=== PATIENT | female | born 1980 | race Hispanic/Latino ===

== ENCOUNTER 2017-06-29 11:20 | Emergency (ER) | payer SELFPAY ==
[2017-06-29] MEDS ORDERED: MOTRIN PO ONE (15:06)
--- NOTE | 2017-06-29 16:18 | Emergency Department Report ---
ED Lower Extremity HPI - General Chief Complaint: Extremity Problem,Nontraumatic Stated Complaint: RT FOOT PAIN Time Seen by Provider: 06/29/17 14:00 Source: patient Mode of arrival: Ambulatory Limitations: No Limitations - History of Present Illness Initial Comments: 36-year-old female past medical history obesity presents with complaint of one month of right heel pain. Patient states that standing hurts and that is persistent pain. Denies any fevers chills changes in skin coloration. States that she works standing on her feet for prolonged periods of time. Patient is ambulatory without assistance. Has not taken any medicines for the pain at home. Has not followed up with primary care or podiatry. MD Complaint: foot injury Onset/Timin -: month(s) Injury: Foot: Right (right heel radiating to midfoot) Place: home, work Severity: moderate Severity scale (0 -10): 5 Worsens With: weight bearing Context: walking Associated Symptoms: ambulatory - Related Data Previous Rx's Medication Instructions Recorded Last Taken Type Naproxen [Naprosyn TAB] 500 mg PO BID PRN #25 tablet 06/29/17 Unknown Rx Allergies Allergy/AdvReac Type Severity Reaction Status Date / Time Penicillins Allergy Unknown Verified 06/29/17 12:04 codeine AdvReac Vomiting Verified 06/29/17 12:04 ED Review of Systems ROS: Stated complaint: RT FOOT PAIN Other details as noted in HPI Constitutional: denies: chills, fever Eyes: denies: eye pain, eye discharge, vision change ENT: denies: ear pain, throat pain Respiratory: denies: cough, shortness of breath, wheezing Cardiovascular: denies: chest pain, palpitations Endocrine: no symptoms reported Gastrointestinal: denies: abdominal pain, nausea, diarrhea Genitourinary: denies: urgency, dysuria, discharge Musculoskeletal: as per HPI. denies: back pain, joint swelling, arthralgia Skin: denies: rash, lesions Neurological: denies: headache, weakness, paresthesias Psychiatric: denies: anxiety, depression Hematological/Lymphatic: denies: easy bleeding, easy bruising ED Past Medical Hx - Past Medical History Hx Hypertension: Yes - Surgical History Additional Surgical History: left ankle/knee - Social History Smoking Status: Never Smoker Substance Use Type: None - Medications Home Medications: Home Medications Medication Instructions Recorded Confirmed Last Taken Type Naproxen [Naprosyn TAB] 500 mg PO BID PRN #25 tablet 06/29/17 Unknown Rx ED Physical Exam - General Limitations: No Limitations General appearance: alert, in no apparent distress - Head Head exam: Present: atraumatic, normocephalic - Eye Eye exam: Present: normal appearance, PERRL, EOMI - ENT ENT exam: Present: mucous membranes moist - Neck Neck exam: Present: normal inspection, full ROM - Respiratory Respiratory exam: Present: normal lung sounds bilaterally. Absent: respiratory distress - Cardiovascular Cardiovascular Exam: Present: regular rate, normal rhythm. Absent: systolic murmur, diastolic murmur, rubs, gallop - GI/Abdominal GI/Abdominal exam: Present: soft, normal bowel sounds - Extremities Exam Extremities exam: Present: normal inspection - Expanded Lower Extremity Exam Right Hip exam: Present: normal inspection, full ROM Upper Leg exam: Present: normal inspection, full ROM Knee exam: Present: normal inspection, full ROM Lower Leg exam: Present: normal inspection, full ROM Ankle exam: Present: normal inspection, full ROM Foot/Toe exam: Present: normal inspection, full ROM, tenderness (tenderness deep palpation to heel/calcaneous) Neuro vascular tendon exam: Present: no vascular compromise (distal DP and PT pulses intact) Gait: Positive: observed and normal 1 - pain w/ palpation here - Back Exam Back exam: Present: normal inspection - Neurological Exam Neurological exam: Present: alert, oriented X3, CN II-XII intact, normal gait - Psychiatric Psychiatric exam: Present: normal affect, normal mood - Skin Skin exam: Present: warm, dry, intact, normal color. Absent: rash ED Course Vital Signs 06/29/17 06/29/17 06/29/17 12:04 16:39 16:40 Temperature 98.1 F Pulse Rate 77 78 Respiratory 16 16 Rate Blood Pressure 179/107 Blood Pressure 163/94 [Right] O2 Sat by Pulse 97 Oximetry ED Lower Extremity MDM - Medical Decision Making A/P: Plantar fasciitis right heel 1-RICE therapy 2-NSAIDs when necessary 3-podiatry follow-up, primary care follow-up, recommended the patient wear comfortable supportive foot soles and foot were, Melchor wrap right foot. Critical care attestation.: If time is entered above; I have spent that time in minutes in the direct care of this critically ill patient, excluding procedure time. ED Disposition Clinical Impression: Pain of right heel Disposition: DC-01 TO HOME OR SELFCARE Is pt being admited?: No Does the pt Need Aspirin: No Condition: Stable Instructions: Plantar Fasciitis (ED) Prescriptions: Naproxen [Naprosyn TAB] 500 mg PO BID PRN #25 tablet PRN Reason: Pain Referrals: MEDINA DUTTA DPM [Staff Physician] - 3-5 Days [facility] [Provider Group] - 3-5 Days [facility] [Outside] - 3-5 Days Forms: Work/School Release Form(ED) Time of Disposition: 16:24
[2017-06-29 16:40] VITALS: BP 163/94
--- NOTE | 2017-06-29 17:47 | XRay Report ---
FINAL REPORT PROCEDURE: XR FOOT 3+V RT TECHNIQUE: Right foot, three views HISTORY: right heel pain, spurs COMPARISON: No prior studies are available for comparison. FINDINGS: No acute fracture or dislocation is seen. Arthritic changes are noted of the midfoot. Small plantar calcaneal enthesophyte is seen, measuring 3 millimeters. Enthesophyte is seen at the Achilles insertion on the posterior calcaneus, measuring 6 millimeters. IMPRESSION: Calcaneal enthesophytes as described above.
== END 2017-06-29 16:41 | disposition home or self-care (01) ==
LOC: ED 11:20
DX: M79.604 Pain in right leg (principal); I10 Essential (primary) hypertension

== ENCOUNTER 2017-07-07 02:27 | Emergency (ER) | payer OTHER ==
[2017-07-07] MEDS ORDERED: TORADOL IV ONE (02:48)
[2017-07-07] MEDS ORDERED: ZOFRAN IV ONE ×2 (02:48→03:30)
[2017-07-07] MEDS ORDERED: MORPHINE ONE (03:29)
[2017-07-07] MEDS ORDERED: MORPHINE IV ONE ×2 (03:30→07:21)
[2017-07-07 04:04] LABS: Basophils % (Auto) 0.6 % (0.0-1.8); Eosinophils % (Auto) 1.5 % (0.0-4.3); Hematocrit 34.7 % (30.3-42.9); Hemoglobin 10.7 gm/dl (10.1-14.3); Mean Corpuscular HGB Conc 31 % (30-34); Red Blood Count 5.16 M/mm3 (3.65-5.03); Red Cell Distribution Width 19.1 % (13.2-15.2); White Blood Count 12.6 K/mm3 (4.5-11.0)
[2017-07-07 04:24] LABS: Mean Corpuscular Hemoglobin 21 pg (28-32); Mean Corpuscular Volume 67 fl (79-97); Platelet Count 315 K/mm3 (140-440)
[2017-07-07 04:27] LABS: Alanine Aminotransferase 9 units/L (7-56); Albumin 3.6 g/dL (3.9-5); Albumin/Globulin Ratio 0.9 %; Alkaline Phosphatase 77 units/L (35-129); Anion Gap 21 mmol/L; Blood Urea Nitrogen 20 mg/dL (7-17); Calcium 8.9 mg/dL (8.4-10.2); Carbon Dioxide 19 mmol/L (22-30); Glucose 96 mg/dL (65-100); Sodium 135 mmol/L (137-145); Total Protein 7.7 g/dL (6.3-8.2)
[2017-07-07] MEDS ORDERED: NACL 0.9% 1000 ML 1,000 ML ONE (04:45)
[2017-07-07] MEDS ORDERED: NACL 0.9% 1000 ML 1,000 ML IV ONE (05:10)
[2017-07-07 05:19] LABS: Mucus,Urine 3+ /HPF
[2017-07-07 06:20] LABS: Bilirubin,Urine NEG (Negative); Blood,Urine NEG (Negative); Ketones,Urine NEG (Negative); Leukocyte Esterase,Urine TR (Negative); Nitrite,Urine NEG (Negative); Protein,Urine <15 mg/dL mg/dL (Negative); Urobilinogen,Urine < 2.0 mg/dL (<2.0)
--- NOTE | 2017-07-07 06:57 | Cat Scan Report ---
FINAL REPORT PROCEDURE: CT ABDOMEN PELVIS WO CON TECHNIQUE: Computerized axial tomography of the abdomen and pelvis was performed without intravenous contrast. This study is performed without intravascular contrast material and its sensitivity for abdominal and pelvic pathology, including neoplasms, inflammation, abscess, free fluid, thrombosis, arterial dissection and infarction, is reduced compared with a contrast enhanced study. HISTORY: suspected kidney stone COMPARISON: No prior studies are available for comparison. FINDINGS: Visualized lower thorax: No significant abnormality. Liver: Normal size and attenuation. Spleen: Normal size and attenuation. Gallbladder and biliary system: Normal. Pancreas: Normal. Adrenals: There is a 1 centimeter fatty mass in the left adrenal gland suggesting adenoma.. Kidneys: There are no kidney stones or ureteral stones. There is no hydronephrosis.. GI tract: There is no bowel obstruction, colitis or enteritis. The appendix is normal.. Lymph nodes and mesentery: Normal. Vasculature: Normal. Bladder: Normal. Reproductive organs: Uterus and ovaries are unremarkable.. Peritoneum: There is no ascites, free air, abscess or adenopathy.. Musculoskeletal structures: No significant abnormality. Other: None. IMPRESSION: There is a 1 centimeter fatty mass in the left adrenal gland suggesting adenoma.. There are no kidney stones or ureteral stones. There is no hydronephrosis.. There is no bowel obstruction, colitis or enteritis. The appendix is normal.. Uterus and ovaries are unremarkable.. There is no ascites, free air, abscess or adenopathy.. .
--- NOTE | 2017-07-07 07:26 | Emergency Department Report ---
ED Abdominal Pain HPI - General Chief Complaint: Abdominal Pain Stated Complaint: POSS KIDNEY STONE/PAIN Time Seen by Provider: 07/07/17 07:14 Source: patient Mode of arrival: Ambulatory Limitations: No Limitations - History of Present Illness Initial Comments: 37-year-old female coming in his right flank pain that started yesterday described the pain as sharp in nature increase his movement relieved his remaining is still. Denied any fever no dysuria or hematuria. No nausea or vomiting or diarrhea. MD Complaint: flank pain -: days(s) Location: R flank Radiation: back Migration to: R flank Severity scale (0 -10): 9 Quality: dull - Related Data Previous Rx's Medication Instructions Recorded Last Taken Type Naproxen [Naprosyn TAB] 500 mg PO BID PRN #25 tablet 06/29/17 Unknown Rx Ketorolac [Toradol] 10 mg PO Q6H PRN #20 tablet 07/07/17 Unknown Rx Metaxalone [Skelaxin] 800 mg PO TID #30 tablet 07/07/17 Unknown Rx Allergies Allergy/AdvReac Type Severity Reaction Status Date / Time Penicillins Allergy Unknown Verified 06/29/17 12:04 codeine AdvReac Vomiting Verified 06/29/17 12:04 ED Review of Systems ROS: Stated complaint: POSS KIDNEY STONE/PAIN Other details as noted in HPI Comment: All other systems reviewed and negative Constitutional: denies: chills, fever Respiratory: denies: cough, shortness of breath Cardiovascular: denies: chest pain, palpitations Gastrointestinal: abdominal pain. denies: nausea, vomiting Neurological: denies: headache, weakness ED Past Medical Hx - Past Medical History Previous Medical History?: Yes Hx Hypertension: Yes Hx Kidney Stones: Yes - Surgical History Past Surgical History?: Yes Additional Surgical History: left ankle/knee - Social History Smoking Status: Never Smoker Substance Use Type: None - Medications Home Medications: Home Medications Medication Instructions Recorded Confirmed Last Taken Type Naproxen [Naprosyn TAB] 500 mg PO BID PRN #25 tablet 06/29/17 Unknown Rx Ketorolac [Toradol] 10 mg PO Q6H PRN #20 tablet 07/07/17 Unknown Rx Metaxalone [Skelaxin] 800 mg PO TID #30 tablet 07/07/17 Unknown Rx ED Physical Exam - General Limitations: No Limitations General appearance: alert - ENT ENT exam: Present: normal exam - Neck Neck exam: Present: normal inspection - Respiratory Respiratory exam: Present: normal lung sounds bilaterally - Cardiovascular Cardiovascular Exam: Present: regular rate, normal rhythm, normal heart sounds - GI/Abdominal GI/Abdominal exam: Present: soft. Absent: tenderness, guarding, rebound, rigid , mass, bruit - Extremities Exam Extremities exam: Present: normal inspection - Back Exam Back exam: Present: CVA tenderness (R). Absent: CVA tenderness (L), muscle spasm - Neurological Exam Neurological exam: Present: alert, oriented X3, CN II-XII intact - Skin Skin exam: Present: warm, intact ED Course Vital Signs 07/07/17 07/07/17 02:39 03:31 Temperature 98.0 F Pulse Rate 96 H Respiratory 18 Rate Blood Pressure 166/98 O2 Sat by Pulse 100 Oximetry ED Medical Decision Making - Lab Data Result diagrams: 07/07/17 03:46 07/07/17 03:46 - Medical Decision Making No evidence of kidney stone or acute intra-abdominal process. She stated that she has been lifting her mother who is sick. Informed patient about her CT finding and the need to follow-up with her primary care physician. Critical care attestation.: If time is entered above; I have spent that time in minutes in the direct care of this critically ill patient, excluding procedure time. ED Disposition Clinical Impression: Flank pain Disposition: DC-01 TO HOME OR SELFCARE Is pt being admited?: No Condition: Stable Instructions: Abdominal Pain (ED), Flank Pain (ED) Referrals: PRIMARY CARE, [Primary Care Provider] - 3-5 Days
[2017-07-07 08:12] VITALS: BP 158/90
== END 2017-07-07 08:15 | disposition home or self-care (01) ==
LOC: ED 02:27
DX: R10.9 Unspecified abdominal pain (principal); I10 Essential (primary) hypertension; Z88.0 Allergy status to penicillin; Z88.5 Allergy status to narcotic agent
CPT/HCPCS: 36415; 74176; 80053; 81001; 81025; 82550; 85025; 96361; 96374; 96375; 96376; 99284; J1885; J2270; J2405; J7030

== ENCOUNTER 2018-03-24 13:22 | Emergency (ER) | payer SELFPAY ==
[2018-03-24 13:43] VITALS: BP 166/99
[2018-03-24] MEDS ORDERED: ASPIRIN PO ONE (13:43)
[2018-03-24 14:40] LABS: Basophils % (Auto) 0.3 % (0.0-1.8); Eosinophils # (Auto) 0.1 K/mm3 (0.0-0.4); Eosinophils % (Auto) 0.7 % (0.0-4.3); Hematocrit 33.6 % (30.3-42.9); Hemoglobin 10.4 gm/dl (10.1-14.3); Lymphocytes % (Auto) 19.5 % (13.4-35.0); Mean Corpuscular HGB Conc 31 % (30-34); Monocytes # (Auto) 0.8 K/mm3 (0.0-0.8); Monocytes % (Auto) 7.6 % (0.0-7.3); Platelet Count 425 K/mm3 (140-440); Red Blood Count 5.11 M/mm3 (3.65-5.03); Red Cell Distribution Width 19.1 % (13.2-15.2)
[2018-03-24 14:42] LABS: Mean Corpuscular Hemoglobin 20 pg (28-32); Mean Corpuscular Volume 66 fl (79-97)
[2018-03-24 15:05] LABS: BUN/Creatinine Ratio 24; Blood Urea Nitrogen 12 mg/dL (7-17); Calcium 9.4 mg/dL (8.4-10.2); Hemolysis Index 1
[2018-03-24 15:10] LABS: INR 0.89 (0.87-1.13)
== END 2018-03-24 14:30 | disposition left against medical advice (07) ==
LOC: ED 13:22
DX: R07.89 Other chest pain (principal); R51 Headache; Z53.21 Procedure and treatment not carried out due to patient leaving prior to being seen by health care provider
CPT/HCPCS: 36415; 80048; 84484; 85025; 85610; 93005; 93010